=== PATIENT | female | born 1975 | race Caucasian/White ===

== ENCOUNTER 2018-09-19 17:37 | Emergency (ER) | payer OTHER ==
[~2018-09-19] VITALS: Ht 162.6 cm; Wt 109.8 kg
[~2018-09-19 17:37] MED LIST: CEPHALEXIN 500500 M3 PO; CIPROFLOXACIN500 M1 PO; CIPROFLOXACIN500 M3 PO; CLEOCIN HCL150 MG PO; DOXYCYCLINE 10100 MG PO; FLEXERIL PO; HYDROCODONE-AP1 EAC6 PO; IBUPROFEN 800800 M1 PO; LIDOCAINE VISC100 M1 SWISH&SPIT; MEDROLDOSEPACK PO; MOBIC7.5 MG PO; NOHOMEMEDICATIONS; NORCO 5-325 TA1 EACH PO; PROAIR HFA8.5 GM INH; PROMETHAZINE D480 ML PO; PROMETHAZINE-D120 ML PO; PROTONIX40 M2 PO; ROBAXIN 750 MG750 M1 PO; TESSALON PERLE100 MG PO; TRAMADOL 50 MG50 MG PO; VENTOLIN HFA INH8 GM IH; ZPAK PO
[2018-09-19 18:15] LABS: URINE BILIRUBIN NEGATIVE (Negative); URINE BLOOD NEGATIVE (Negative); URINE CLARITY CLEAR; URINE COLOR YELLOW; URINE GLUCOSE-RANDOM NEGATIVE (Negative); URINE KETONES NEGATIVE (Negative); URINE LEUKOCYTES-REFLEX NEGATIVE (Negative); URINE NITRITE-REFLEX NEGATIVE (Negative); URINE PROTEIN NEGATIVE (Negative); URINE SPECIFIC GRAVITY <= 1.005 (1.005-1.030); URINE UROBILINOGEN 0.2 E.U./dl (0.2-1.0)
[2018-09-19 19:40] VITALS: BP 144/72
== END 2018-09-19 19:40 | disposition home or self-care (01) ==
LOC: M.ERS 17:37
PROVIDERS: Nurse Practitioner Family
DX: A59.01 Trichomonal vulvovaginitis (principal); M54.5 Low back pain; Z88.5 Allergy status to narcotic agent; Z98.890 Other specified postprocedural states

== ENCOUNTER 2018-09-30 11:21 | Emergency (ER) | payer OTHER ==
[~2018-09-30] VITALS: Ht 165.1 cm; Wt 109.8 kg
[2018-09-30 12:02] LABS: ABSOLUTE EOSINOPHILS 0.3 thou/uL (0.0-0.7); ABSOLUTE LYMPHOCYTES 1.4 thou/uL (0.8-5.3); ABSOLUTE MONOCYTES 0.6 thou/uL (0.0-1.2); ABSOLUTE NEUTROPHILS 2.6 thou/uL (1.6-8.1); BASOPHILS 0.7 %; EOSINOPHILS 5.5 %; HEMATOCRIT 31.7 % (37.0-47.0); HEMOGLOBIN 9.8 gm/dL (12.0-15.0); LYMPHOCYTES 28.3 %; MCH 21.7 pg (26.0-34.0); MCHC 31.1 g/dL (28.0-37.0); MCV 69.9 fL (80.0-100.0); MONOCYTES 11.5 %; MPV 8.9 fl. (7.2-11.1); NUCLEATED RBCS 0 /100WBC; PLATELET COUNT* 295 thou/uL (150-400); RBC 4.53 mil/uL (4.20-5.00); RDW-CV 16.6 % (10.5-14.5); WBC 4.8 thou/uL (4.0-11.0)
[2018-09-30 12:04] LABS: URINE BILIRUBIN NEGATIVE (Negative); URINE BLOOD 3+ (Negative); URINE CLARITY CLEAR; URINE COLOR YELLOW; URINE GLUCOSE-RANDOM NEGATIVE (Negative); URINE KETONES NEGATIVE (Negative); URINE LEUKOCYTES NEGATIVE (Negative); URINE NITRITE NEGATIVE (Negative); URINE PROTEIN NEGATIVE (Negative); URINE UROBILINOGEN 0.2 E.U./dl (0.2-1.0)
[2018-09-30 12:10] LABS: ANION GAP 7 mmol/L (7-16); BUN 10 mg/dL (7-18); CALCIUM 8.7 mg/dL (8.5-10.1); CHLORIDE 103 mmol/L (98-107); CO2 28 mmol/L (21-32); GLUCOSE 96 mg/dL (70-99); POTASSIUM 3.6 mmol/L (3.5-5.1); SODIUM 138 mmol/L (136-145)
[2018-09-30 12:11] LABS: SQUAMOUS 4-10 Moderate /LPF (0-3)
[2018-09-30 12:12] LABS: URINE RBC 3-10 Few /HPF (0-2); URINE WBC 0-5 Rare /HPF (0-5)
[2018-09-30 12:13] LABS: CASTS None Seen /LPF (None Seen); CRYSTALS None Seen /LPF (None Seen); MUCUS 0-3 Light strn/LPF (None Seen)
[2018-09-30 12:17] LABS: ALBUMIN 3.3 g/dL (3.4-5.0); ALKALINE PHOSPHATASE 92 U/L (46-116); LIPASE 107 U/L (73-393); SGOT 15 U/L (15-37); SGPT 17 U/L (30-65); TOTAL BILIRUBIN 0.1 mg/dL (<0.1-1.0); TOTAL PROTEIN 7.5 g/dL (6.4-8.2); TROPONIN-I LEVEL <0.06 ng/mL (<0.06)
[2018-09-30 12:35] LABS: ANISOCYTOSIS 1+; MICROCYTES 1+
[2018-09-30 12:47] LABS: APTT 25.6 Seconds (25.0-31.3); PROTIME 10.4 Seconds (9.20-11.50)
[2018-09-30] MEDS ORDERED: NABUMETONE 750750 M1 PO (14:18)
[2018-09-30] MEDS ORDERED: NORCO 5-325 TA1 EACH PO (14:18)
[2018-09-30 15:07] VITALS: BP 117/86
--- NOTE | 2018-09-30 15:51 | EKG ---
[place] [address] ELECTROCARDIOGRAM REPORT Name: DIANE WALTON Room: [facility]#: [id number] Admission: 09/30/18 Attend Phys: Discharge: 09/30/18 Date of : 73 Report #: [id number] THIS REPORT FOR: //name// [facility] ED Test Date: 2018-09-30 Test Time: 12:06:10 Pat Name: DIANE WALTON Department: Room: Gender: F Supervisor Intelligence Analyst: Otilio BERMAN : 1975 Requested By: Nicky Morton Order Number: [id number] MD: Eloy Mccarthy Measurements Intervals [place] Rate: 73 P: 53 IL: 148 QRS: 17 QRSD: 99 T: 0 QT: 406 QTc: 448 Interpretive Statements Sinus rhythm Abnormal R-wave progression, early transition No previous ECG available for comparison Electronically Signed On 09-30-2018 15:51:04 [employer] TECHNICIAN by Eloy Mccarthy [email or web address] <ELECTRONICALLY SIGNED> By: Eloy Mccarthy MD, [facility] 09/30/18 1551 [id number] Eloy Mccarthy MD, FACC /EPI
== END 2018-09-30 15:07 | disposition home or self-care (01) ==
LOC: M.ERS 11:21
PROVIDERS: Nurse Practitioner Family
DX: N83.8 Other noninflammatory disorders of ovary, fallopian tube and broad ligament (principal); Z88.5 Allergy status to narcotic agent; Z90.89 Acquired absence of other organs

== ENCOUNTER 2019-01-18 21:07 | Emergency (ER) | payer OTHER ==
[~2019-01-18] VITALS: Ht 165.1 cm; Wt 109.8 kg
[~2019-01-18 21:07] MED LIST changes: +NABUMETONE 750750 M1 PO
[2019-01-18 21:34] LABS: ABSOLUTE BASOPHILS 0.1 thou/uL (0.0-0.2); ABSOLUTE EOSINOPHILS 0.1 thou/uL (0.0-0.7); ABSOLUTE LYMPHOCYTES 1.6 thou/uL (0.8-5.3); ABSOLUTE MONOCYTES 0.8 thou/uL (0.0-1.2); ABSOLUTE NEUTROPHILS 6.3 thou/uL (1.6-8.1); BASOPHILS 0.7 %; EOSINOPHILS 1.6 %; HEMATOCRIT 28.9 % (37.0-47.0); LYMPHOCYTES 18.2 %; MCH 20.8 pg (26.0-34.0); MCHC 31.2 g/dL (28.0-37.0); MCV 66.8 fL (80.0-100.0); MONOCYTES 8.7 %; MPV 8.5 fl. (7.2-11.1); NUCLEATED RBCS 0 /100WBC; PLATELET COUNT* 326 thou/uL (150-400); POLYS 70.8 %; RBC 4.32 mil/uL (4.20-5.00); RDW-CV 16.9 % (10.5-14.5)
[2019-01-18 21:45] LABS: URINE BILIRUBIN NEGATIVE (Negative); URINE BLOOD TRACE (Negative); URINE CLARITY CLEAR; URINE COLOR YELLOW; URINE GLUCOSE-RANDOM NEGATIVE (Negative); URINE KETONES NEGATIVE (Negative); URINE LEUKOCYTES-REFLEX 2+ (Negative); URINE NITRITE-REFLEX POSITIVE (Negative); URINE PROTEIN NEGATIVE (Negative); URINE UROBILINOGEN 0.2 E.U./dl (0.2-1.0)
[2019-01-18 21:50] LABS: MUCUS None Seen strn/LPF (None Seen); SQUAMOUS 4-10 Moderate /LPF (0-3)
[2019-01-18 21:51] LABS: BACTERIA-REFLEX >30 Many /HPF (None Seen); CASTS None Seen /LPF (None Seen); URINE WBC-REFLEX >25 Many /HPF (0-5); WBC CLUMPS Few (None Seen)
[2019-01-18 21:52] LABS: CRYSTALS None Seen /LPF (None Seen); URINE RBC 0-2 Rare /HPF (0-2)
[2019-01-18 21:54] LABS: ALBUMIN 3.5 g/dL (3.4-5.0); CALCIUM 8.6 mg/dL (8.5-10.1); CREATININE 0.9 mg/dL (0.6-1.3); TOTAL BILIRUBIN 0.3 mg/dL (<0.1-1.0)
[2019-01-18] MEDS ORDERED: AUGMENTIN 875-1 EACH PO (22:09)
[2019-01-18] MEDS ORDERED: NORCO 7.5-3251 EACH PO (22:21)
[2019-01-18 22:40] VITALS: BP 112/66
[2019-01-18 23:03] LABS: ANISOCYTOSIS 1+; HYPOCHROMASIA 3+; PLATELET ESTIMATE ADEQUATE
[2019-01-18 23:04] LABS: MICROCYTES 3+
--- NOTE | 2019-01-19 13:27 | EKG ---
[place] [address] ELECTROCARDIOGRAM REPORT Name: DIANE WALTON Room: [facility]#: [id number] Admission: 01/18/19 Attend Phys: Discharge: 01/18/19 Date of : 73 Report #: [id number] THIS REPORT FOR: //name// [facility] ED Test Date: 2019-01-18 Test Time: 21:12:13 Pat Name: DIANE WALTON Department: Room: Gender: F Joy Loader: Otilio RODRÍGUEZ : 1975 Requested By: Lexy Lackey Order Number: [id number] MD: Tim Wu Measurements Intervals [place] Rate: 90 P: 42 IN: 138 QRS: 3 QRSD: 90 T: -5 QT: 360 QTc: 441 Interpretive Statements Sinus rhythm Borderline T abnormalities, inferior leads Compared to ECG 09/30/2018 12:06:10 T-wave abnormality now present Electronically Signed On 01-19-2019 13:27:45 CDT by Tim Wu [email or web address] <ELECTRONICALLY SIGNED> By: Tim Wu MD, [facility] 01/19/19 1327 11 11 Tim Wu MD, FACC /EPI
== END 2019-01-18 22:44 | disposition home or self-care (01) ==
LOC: M.ERS 21:07
PROVIDERS: Emergency Medicine
DX: N12 Tubulo-interstitial nephritis, not specified as acute or chronic (principal); Z90.89 Acquired absence of other organs; Z88.5 Allergy status to narcotic agent

== ENCOUNTER 2019-09-18 23:28 | Emergency (ER) | payer OTHER ==
[~2019-09-18] VITALS: Ht 165.1 cm; Wt 102.1 kg
[~2019-09-18 23:28] MED LIST changes: +AUGMENTIN 875-1 EACH PO; +NORCO 7.5-3251 EACH PO
[2019-09-18 23:41] VITALS: BP 128/77
[2019-09-19] MEDS ORDERED: MAGIC MOUTHWASH SWISH&SPIT (00:15)
[2019-09-19 00:17] LABS: INFLUENZA A ANTIGEN Negative (Negative); INFLUENZA B ANTIGEN Negative (Negative)
== END 2019-09-19 00:27 | disposition home or self-care (01) ==
LOC: M.ERS 23:28
PROVIDERS: Family Medicine
DX: J06.9 Acute upper respiratory infection, unspecified (principal); Z90.89 Acquired absence of other organs; Z88.5 Allergy status to narcotic agent